=== PATIENT | male | born 1990 | race Caucasian/White ===

== ENCOUNTER 2022-05-25 21:31 | Emergency (ER) | payer SELFPAY ==
[~2022-05-25] VITALS: Ht 170.2 cm; Wt 104.3 kg
[2022-05-25 21:38] VITALS: BP_SYST 142
--- NOTE | 2022-05-25 21:43 | NUR ---
PT STATES HE TOOK 2 500 MG OF TYLENOL AND 2 800MG OF IBUPROFEN AT HOME AROUND 1845.
--- NOTE | 2022-05-25 22:14 | NUR ---
Placed patient in triage room for evaluation.
[2022-05-25] MEDS ORDERED: ACETAMINOPHEN 500 MG TABLET PO ONE (22:15)
[2022-05-25] MEDS ORDERED: ONDANSETRON 4 MG ODT TAB PO ONE (22:15)
--- NOTE | 2022-05-25 22:15 | NUR ---
Dr. Conner at bedside examining the patient.
--- NOTE | 2022-05-25 22:25 | NUR ---
Patient taken to CT.
--- NOTE | 2022-05-25 22:48 | NUR ---
Patient is back from CT.
--- NOTE | 2022-05-25 22:53 | NUR ---
PT MEDICATED PER MD ORDER, SEE eMAR.
[2022-05-25] MEDS ORDERED: ONDA-8 TL (23:11)
--- NOTE | 2022-05-25 23:16 | NUR ---
Patient given written and verbal discharge instructions and verbalizes understanding. ER MD discussed with patient the results and treatment provided. Patient in stable condition. ID arm band removed. Rx of ONDANSETRON given. Patient educated on pain management and to follow up with PMD. Pain Scale 0/10. Opportunity for questions provided and answered. Medication side effect fact sheet provided.
[2022-05-25 23:18] VITALS: BP_SYST 138
== END 2022-05-25 23:18 | disposition home or self-care (01) ==
LOC: SED 21:31
DX: S06.0X0A Concussion without loss of consciousness, initial encounter (principal); S83.91XA Sprain of unspecified site of right knee, initial encounter; S30.0XXA Contusion of lower back and pelvis, initial encounter; Z79.899 Other long term (current) drug therapy; W01.0XXA Fall on same level from slipping, tripping and stumbling without subsequent striking against object, initial encounter; Y93.89 Activity, other specified; Y92.89 Other specified places as the place of occurrence of the external cause; Y99.8 Other external cause status
CPT/HCPCS: 99284; 70450; 73564; 72128; 72131; 76376; Q0162